=== PATIENT | male | born 1940 | race Caucasian/White ===

== ENCOUNTER 2022-03-02 12:23 | Emergency (ER) | payer MEDICARE, BC ==
[2022-03-02] MEDS ORDERED: predniSONE 20 MG Tab PO ONE (14:10)
== END 2022-03-02 15:00 | disposition home or self-care (01) ==
LOC: JD.ED 12:23
DX: M10.9 Gout, unspecified (principal); I11.0 Hypertensive heart disease with heart failure; I50.9 Heart failure, unspecified; Z88.8 Allergy status to other drugs, medicaments and biological substances
CPT/HCPCS: 99283; J7512; 99284